=== PATIENT | female | born 1940 | race Caucasian/White ===

== ENCOUNTER 2019-09-21 14:53 | Emergency (ER) | payer MEDICARE, OTHER ==
[~2019-09-21] VITALS: Ht 157.5 cm; Wt 80.0 kg
[2019-09-21] MEDS ORDERED: FENO48TA20 PO (15:01)
[2019-09-21] MEDS ORDERED: GLYB5 PO (15:01)
[2019-09-21] MEDS ORDERED: METF-960 PO (15:01)
[2019-09-21] MEDS ORDERED: SITA100 PO (15:01)
[2019-09-21] MEDS ORDERED: LOSA25TA71 PO (15:01)
[2019-09-21] MEDS ORDERED: OMEG10005 PO (15:01)
[2019-09-21] MEDS ORDERED: ACETAMINOPHEN 325 MG TABLET PO ONE (17:15)
[2019-09-21] MEDS ORDERED: IBUPROFEN 400 MG TABLET PO ONE (17:15)
[2019-09-21] MEDS ORDERED: LIDOCAINE 5% TRANSDERMAL PATCH TD ONE (17:15)
[2019-09-21 18:39] VITALS: BP 153/81
[2019-09-22 07:16] LABS: GLUCOSE,POINT OF CARE 127 MG/DL (70-110)
== END 2019-09-21 18:41 | disposition home or self-care (01) ==
LOC: EMS 15:02
DX: M25.561 Pain in right knee (principal); E11.9 Type 2 diabetes mellitus without complications; I10 Essential (primary) hypertension; E78.00 Pure hypercholesterolemia, unspecified

== ENCOUNTER 2024-09-17 18:50 | Emergency (ER) | payer MEDICARE, OTHER ==
[~2024-09-17] VITALS: Ht 154.9 cm; Wt 81.8 kg
[~2024-09-17 18:50] MED LIST: FENO48TA12 PO; GLYB-145 PO; LOSA-381 PO; METF-1211 PO; OMEG100014 PO; SITA100 PO
[2024-09-17 19:06] VITALS: TEMP 97.9
[2024-09-17] MEDS ORDERED: METO-416 PO (20:36)
[2024-09-17] MEDS ORDERED: ICOS1CAP2 PO (20:36)
[2024-09-17] MEDS ORDERED: LOSA100T59 PO (20:36)
[2024-09-17] MEDS ORDERED: INSU3INS3 SQ (20:36)
[2024-09-17] MEDS ORDERED: FURO20TA4 PO (20:36)
[2024-09-17] MEDS ORDERED: PREG50CA64 PO (20:36)
[2024-09-17] MEDS ORDERED: FENO145T26 PO (20:36)
[2024-09-17] MEDS ORDERED: HYDR10TA31 PO (20:36)
[2024-09-17] MEDS ORDERED: METF-446 PO (20:36)
[2024-09-17] MEDS ORDERED: OMEP20CA12 PO (20:36)
[2024-09-17] MEDS: KETOROLAC TROMETHAMINE 60 MG/2 ML VIAL IM ONE (21:02)
[2024-09-17] MEDS ORDERED: ACET-66 PO (21:50)
[2024-09-17 22:08] VITALS: BP 133/87; PULSE 65; RESP 18; O2SAT 98
[2024-09-17] MEDS ORDERED: HYDR-4062 PO (22:08)
== END 2024-09-17 22:41 | disposition home or self-care (01) ==
LOC: EMS 18:55
DX: M16.11 Unilateral primary osteoarthritis, right hip (principal); M25.551 Pain in right hip; E11.9 Type 2 diabetes mellitus without complications; E78.00 Pure hypercholesterolemia, unspecified; I10 Essential (primary) hypertension; Z98.890 Other specified postprocedural states; Z79.899 Other long term (current) drug therapy
CPT/HCPCS: 99283; 73502; 96372; J1885